=== PATIENT | male | born 2000 | race Caucasian/White ===

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

== ENCOUNTER → 2022-03-03 | Outpatient (CLI) | payer OTHER | LOC: LAB 13:53 → LAB SHORT 13:53 | DX: L08.9 Local infection of the skin and subcutaneous tissue, unspecified (principal) | CPT/HCPCS: 87070; 87205 ==